=== PATIENT | female | born 1990 | race Asian ===

== ENCOUNTER → 2018-12-30 | Outpatient (CLI) | payer MEDICAID | LOC: COL.RAD 09:45 | DX: R10.2 Pelvic and perineal pain (principal); Z97.5 Presence of (intrauterine) contraceptive device ==

== ENCOUNTER 2019-07-18 12:16 | Emergency (ER) | payer MEDICAID ==
[~2019-07-18] VITALS: Ht 170.2 cm; Wt 69.1 kg
[2019-07-18 12:23] VITALS: BP 115/82
[2019-07-18 13:55] LABS: BASO % 0.4 % (0.0-2.0); EOS # 0.1 (0.0-0.7); EOS % 0.8 % (0-4.0); GRAN % 71.9 % (42.2-75.2); HEMATOCRIT 38.5 % (37.0-47.0); HEMOGLOBIN 12.8 g/dl (12.5-16.0); LYMPH % 23.5 % (20.0-51.0); MEAN CELL VOLUME 82 fl (80.0-100.0); MEAN CORPUSCULAR HEMOGLOBIN 27 pg (27.0-31.0); MEAN CORPUSCULAR HGB CONC 33 g/dl (33.0-37.0); MEAN PLATELET VOLUME 10.1 fl (7.4-10.4); MONO # 0.3 (0.1-0.6); MONO % 3.2 % (1.7-9.3); PLATELET COUNT 255 K/mm3 (130-400); RED BLOOD COUNT 4.71 M/mm3 (4.10-5.30); REDCELL DISTRIBUTION WIDTH-CV 12.7 % (11.5-14.5)
[2019-07-18 14:07] LABS: ALANINE AMINOTRANSFERASE 14 U/L (9-52); ALBUMIN 4.6 gm/dL (3.5-5.0); ALKALINE PHOSPHATASE 47 U/L (50-136); ANION GAP 12 mmol/L (7-16); AST,SGOT 24 U/L (15-37); BILIRUBIN,TOTAL 0.3 mg/dL (0.0-1.0); BLOOD UREA NITROGEN 11 mg/dL (7-17); CALCIUM 9.1 mg/dL (8.4-10.2); CARBON DIOXIDE 23 mmol/L (22-30); CHLORIDE 105 mmol/L (98-107); CREATININE, serum 0.55 (0.52-1.25); GLUCOSE 126 mg/dL (74-106); POTASSIUM 3.6 mmol/L (3.4-5.0); SODIUM 140 mmol/L (137-145); TOTAL PROTEIN 8.4 gm/dL (6.4-8.2)
[2019-07-18 14:11] LABS: C-REACTIVE PROTEIN < 0.5 mg/dL (0.0-0.9)
[2019-07-18 14:39] LABS: COLLECTION METHOD CLEAN CATCH
[2019-07-18 14:44] LABS: MUCOUS Present /lpf; PH 6 (5-8); SQUAMOUS EPITHELIAL 0-2 /hpf; URINE APPEARANCE Clear; URINE BACTERIA None Seen /hpf; URINE BILIRUBIN Negative (NEGATIVE); URINE BLOOD Negative (NEGATIVE); URINE COLOR Yellow; URINE GLUCOSE Negative (NEGATIVE); URINE KETONE Negative (NEGATIVE); URINE LEUKOCYTE ESTERASE Trace (NEGATIVE); URINE NITRATE Negative (NEGATIVE); URINE PROTEIN(semi-quant) Negative (NEGATIVE); URINE RBC 0-2 /hpf; URINE UROBILINOGEN Negative (NEGATIVE)
[2019-07-18] MEDS ORDERED: PREDNISONE20 MG PO (15:19)
[2019-07-18 15:31] VITALS: PULSE 70; TEMP 98.2
== END 2019-07-18 15:30 | disposition home or self-care (01) ==
LOC: COL.ER 12:16
PROVIDERS: Nurse Practitioner
DX: R19.7 Diarrhea, unspecified (principal); R07.81 Pleurodynia

== ENCOUNTER 2019-07-22 18:34 | Emergency (ER) | payer MEDICAID ==
[~2019-07-22] VITALS: Ht 170.2 cm; Wt 70.0 kg
[~2019-07-22 18:34] MED LIST: PREDNISONE20 MG PO
[2019-07-22 18:51] VITALS: TEMP 97.1
[2019-07-22 21:06] LABS: COLLECTION METHOD CLEAN CATCH
[2019-07-22 21:11] LABS: GRAN # 6.7 (1.4-6.5); GRAN % 83.8 % (42.2-75.2); HEMATOCRIT 37.9 % (37.0-47.0); HEMOGLOBIN 12.8 g/dl (12.5-16.0); LYMPH # 1.1 (1.2-3.4); LYMPH % 14.1 % (20.0-51.0); MEAN CELL VOLUME 81 fl (80.0-100.0); MEAN CORPUSCULAR HEMOGLOBIN 28 pg (27.0-31.0); MEAN CORPUSCULAR HGB CONC 34 g/dl (33.0-37.0); MEAN PLATELET VOLUME 10.3 fl (7.4-10.4); MONO # 0.2 (0.1-0.6); PLATELET COUNT 276 K/mm3 (130-400); RED BLOOD COUNT 4.66 M/mm3 (4.10-5.30); REDCELL DISTRIBUTION WIDTH-CV 12.9 % (11.5-14.5)
[2019-07-22 21:16] LABS: MUCOUS Present /lpf; PH 6 (5-8); SQUAMOUS EPITHELIAL 0-2 /hpf; URINE APPEARANCE Hazy; URINE BACTERIA None Seen /hpf; URINE BILIRUBIN Negative (NEGATIVE); URINE BLOOD Negative (NEGATIVE); URINE CALCIUM OXALATE CRYSTAL Present /hpf; URINE COLOR Yellow; URINE GLUCOSE 1+ (NEGATIVE); URINE KETONE Negative (NEGATIVE); URINE LEUKOCYTE ESTERASE Negative (NEGATIVE); URINE NITRATE Negative (NEGATIVE); URINE PROTEIN(semi-quant) Negative (NEGATIVE); URINE RBC 0-2 /hpf; URINE UROBILINOGEN Negative (NEGATIVE)
[2019-07-22 21:21] LABS: ALANINE AMINOTRANSFERASE 20 U/L (9-52); ALBUMIN 4.7 gm/dL (3.5-5.0); ALKALINE PHOSPHATASE 49 U/L (50-136); ANION GAP 12 mmol/L (7-16); AST,SGOT 21 U/L (15-37); BILIRUBIN,TOTAL 0.3 mg/dL (0.0-1.0); BLOOD UREA NITROGEN 12 mg/dL (7-17); CALCIUM 9.4 mg/dL (8.4-10.2); CARBON DIOXIDE 27 mmol/L (22-30); CHLORIDE 100 mmol/L (98-107); GLUCOSE 166 mg/dL (74-106); POTASSIUM 3.9 mmol/L (3.4-5.0); SODIUM 139 mmol/L (137-145); TOTAL PROTEIN 8.3 gm/dL (6.4-8.2)
[2019-07-22 21:22] LABS: C-REACTIVE PROTEIN < 0.5 mg/dL (0.0-0.9)
[2019-07-22 23:02] VITALS: BP 104/74; PULSE 56
== END 2019-07-22 22:47 | disposition home or self-care (01) ==
LOC: COL.ER 18:34
PROVIDERS: Physician Assistant
DX: R10.11 Right upper quadrant pain (principal); R07.89 Other chest pain; Z79.52 Long term (current) use of systemic steroids

== ENCOUNTER → 2020-08-14 | Outpatient (CLI) | payer MEDICAID | LOC: COL.RAD 08:15 | DX: R10.11 Right upper quadrant pain (principal) ==

== ENCOUNTER → 2020-09-08 | Outpatient (CLI) | payer MEDICAID | LOC: COL.RAD 12:17 | DX: R10.30 Lower abdominal pain, unspecified (principal); R10.2 Pelvic and perineal pain ==

== ENCOUNTER → 2020-09-25 | Outpatient (CLI) | payer MEDICAID | LOC: MC.RAD 09:00 | DX: N64.4 Mastodynia (principal) ==

== ENCOUNTER 2020-10-15 21:53 | Emergency (ER) | payer MEDICAID ==
[~2020-10-15] VITALS: Ht 167.6 cm; Wt 70.0 kg
[2020-10-15 22:12] VITALS: TEMP 98.1
[2020-10-15 23:12] LABS: COLLECTION METHOD CLEAN CATCH
[2020-10-15 23:18] LABS: MUCOUS Present /lpf; PH 8 (5-8); URINE APPEARANCE Hazy; URINE BACTERIA None Seen /hpf; URINE BILIRUBIN Negative (NEGATIVE); URINE BLOOD Negative (NEGATIVE); URINE COLOR Yellow; URINE GLUCOSE Negative (NEGATIVE); URINE KETONE Negative (NEGATIVE); URINE LEUKOCYTE ESTERASE Negative (NEGATIVE); URINE NITRATE Negative (NEGATIVE); URINE PROTEIN(semi-quant) 1+ (NEGATIVE); URINE RBC 0-2 /hpf; URINE UROBILINOGEN Negative (NEGATIVE)
[2020-10-16 00:13] LABS: BASO % 0.4 % (0.0-2.0); EOS # 0.1 (0.0-0.7); EOS % 0.8 % (0-4.0); GRAN # 4.8 (1.4-6.5); GRAN % 60.3 % (42.2-75.2); HEMATOCRIT 37.1 % (37.0-47.0); HEMOGLOBIN 12.4 g/dl (12.5-16.0); LYMPH # 2.6 (1.2-3.4); LYMPH % 33.2 % (20.0-51.0); MEAN CELL VOLUME 82 fl (80.0-100.0); MEAN CORPUSCULAR HEMOGLOBIN 27 pg (27.0-31.0); MEAN CORPUSCULAR HGB CONC 33 g/dl (33.0-37.0); MEAN PLATELET VOLUME 10.1 fl (7.4-10.4); MONO # 0.4 (0.1-0.6); MONO % 4.9 % (1.7-9.3); PLATELET COUNT 230 K/mm3 (130-400); RED BLOOD COUNT 4.53 M/mm3 (4.10-5.30); REDCELL DISTRIBUTION WIDTH-CV 13.3 % (11.5-14.5)
[2020-10-16 00:23] LABS: ALBUMIN 4.1 gm/dL (3.5-5.0); BILIRUBIN,TOTAL 0.3 mg/dL (0.0-1.0); CALCIUM 8.9 mg/dL (8.4-10.2); CREATININE, serum 0.46 (0.52-1.25); POTASSIUM 3.9 mmol/L (3.4-5.0); TOTAL PROTEIN 7.5 gm/dL (6.4-8.2)
[2020-10-16 01:14] VITALS: BP 107/71; PULSE 63
== END 2020-10-16 01:24 | disposition home or self-care (01) ==
LOC: COL.ER 21:53
PROVIDERS: Nurse Practitioner
DX: O99.891 Other specified diseases and conditions complicating pregnancy (principal); M54.41 Lumbago with sciatica, right side; Z3A.01 Less than 8 weeks gestation of pregnancy

== ENCOUNTER → 2021-04-09 | Outpatient (CLI) | payer MEDICAID | LOC: DIA.ED 11:37 | DX: O24.419 Gestational diabetes mellitus in pregnancy, unspecified control (principal) | CPT/HCPCS: G0108 ==

== ENCOUNTER → 2021-04-25 | Outpatient (CLI) | payer MEDICAID | LOC: DIA.ED 11:54 | DX: O24.419 Gestational diabetes mellitus in pregnancy, unspecified control (principal) | CPT/HCPCS: G0108 ==

== ENCOUNTER → 2021-05-23 | Outpatient (CLI) | payer MEDICAID ==
[~2021-05-23] MED LIST changes: +MOTRIN 800800 MG/TAB PO
== END ==
LOC: DIA.ED 11:55
DX: O24.419 Gestational diabetes mellitus in pregnancy, unspecified control (principal)
CPT/HCPCS: G0108

== ENCOUNTER 2021-06-06 08:03 | Inpatient (IN) | payer MEDICAID ==
[~2021-06-06] VITALS: Ht 162.6 cm; Wt 80.5 kg
[~2021-06-06 08:03] MED LIST changes: -MOTRIN 800800 MG/TAB PO
[2021-06-08] VITALS (33 sets, daily range): BP systolic 102–148; BP diastolic 55–92; PULSE 60–94; TEMP 97.3–98.3
--- NOTE | 2021-06-08 06:40 | NUR ---
0640-Patient ambultory to LDR 6 for induction of labor with spouse at side. Reports 40.1 today and no concners. Patient speaks minmal [place], spouse translating and patient declilnes interpretor line. Assisted into gown and placed on EFM. VSS. IV to left forearm, blood colected and sent to lab per orders. Consnents reviewed and signed and assessment complete. SVE /-2 intact. 0730-Pitocin started per MD orders, see EMAR.
[2021-06-08 07:41] LABS: BASO % 0.3 % (0.0-2.0); EOS # 0.2 K/mm3 (0.0-0.7); EOS % 1.8 % (0.0-4.0); GRAN # 5.8 K/mm3 (1.4-6.5); GRAN % 65.4 % (42.2-75.2); HEMATOCRIT 35.6 % (37.0-47.0); HEMOGLOBIN 10.8 g/dl (12.5-16.0); LYMPH # 2.6 K/mm3 (1.2-3.4); LYMPH % 28.7 % (20.0-51.0); MEAN CELL VOLUME 68 fl (80.0-100.0); MEAN CORPUSCULAR HEMOGLOBIN 21 pg (27-31); MEAN CORPUSCULAR HGB CONC 30 g/dl (33.0-37.0); MEAN PLATELET VOLUME 11.6 fl (7.4-10.4); MONO # 0.3 K/mm3 (0.1-0.6); MONO % 3.6 % (1.7-9.3); PLATELET COUNT 236 K/mm3 (130-400); RED BLOOD COUNT 5.24 M/mm3 (4.10-5.30)
--- NOTE | 2021-06-08 10:50 | NUR ---
1050-Dr. Estrella on unit. In to see patient. 1055-SVE by /-1 AROM by MD mcnair fluid.
[2021-06-08] MEDS ORDERED: MOTRIN 800800 MG/TAB PO (11:16)
--- NOTE | 2021-06-08 11:30 | NUR ---
1130-Patient requests epidural. TEDDY Quezada notified. IVFB started. 1150-TEDDY Quezada to room. Patient sitting upright on bedside. at bedside assisting in translation. 1207-Test dose administered by TEDDY Quezada Patient tolerated procedure well. See anesthesia notification. 1220-Maternal BP 98/56, HR 86. 1224-10mg Ephedrine given per protocol 1241-Maternal BP 102/65 HR 84, FHR with late decels, 10 mg ephedrine given, See EMAR. 1300-Maternal BP 116/81. 1315-Dr. Estrella to patient room. SVE 10//+2
--- NOTE | 2021-06-08 16:40 | NUR ---
1640-Patient ambulates with steady gait to bathroom and easily voids 700ml clear urine. Anastasia care assisted. Oriented to room and updated on plan of care.
--- NOTE | 2021-06-08 17:26 | NUR ---
1319-Patient begins pushing with Dr. Estrella at bedside. Moves vertex well. 1324- Head spontaneous delivers immediately followed by body attened by Dr. Estrella. Infant immediately to mothers abodmen. Cord clamped x 2 and cut by MD. taken to warmer and care of infant assumed by Ivory Augustin RN. Apgars . 1325-Spontaneous Delivery of intact placenta by . Fundal massage firm. Lochia WNL. Pitocin bolus per protocol. EBL 200ml. Anastasia care provided. Updated on plan of care and safety.
[2021-06-09 03:20] VITALS: BP 135/84; PULSE 66; TEMP 97.9
[2021-06-09 08:00] VITALS: BP 127/72; PULSE 61; TEMP 98.5
--- NOTE | 2021-06-09 16:00 | NUR ---
1600-Reviewed discharge instructions with patient and spouse. Instructed on need to follow up with [facility] for 6 week visit. Denies questions or concerns.
== END 2021-06-09 16:10 | disposition home or self-care (01) | DRG 807 ==
LOC: LDR 06-07 08:02 → OB 06-08 06:22 → LDR 06-08 06:22 → OB 06-08 16:40
PROVIDERS: ADMIT Obstetrics & Gynecology
PROC: 10E0XZZ Delivery of Products of Conception, External Approach (ICD-10-PCS; principal; 2021-06-08)
PROC: 3E033VJ Introduction of Other Hormone into Peripheral Vein, Percutaneous Approach (ICD-10-PCS; 2021-06-08)
PROC: 10907ZC Drainage of Amniotic Fluid, Therapeutic from Products of Conception, Via Natural or Artificial Opening (ICD-10-PCS; 2021-06-08)
DX: O24.420 Gestational diabetes mellitus in childbirth, diet controlled (principal); Z37.0 Single live birth; O76 Abnormality in fetal heart rate and rhythm complicating labor and delivery; Z3A.40 40 weeks gestation of pregnancy; Z23 Encounter for immunization
CPT/HCPCS: J2590; J7120

== ENCOUNTER → 2022-02-05 | Outpatient (CLI) | payer MEDICAID ==
[~2022-02-05] MED LIST changes: +MOTRIN 800800 MG/TAB PO
== END ==
LOC: COL.RAD 09:45
DX: R10.11 Right upper quadrant pain (principal)